=== PATIENT | female | born 1940 | race Caucasian/White ===

== ENCOUNTER 2024-05-30 06:11 | Day surgery (SDC) | payer MEDICARE, OTHER, SELFPAY ==
[2024-05-30 06:13] VITALS: BMI 23.9
[2024-05-30 06:37] VITALS: BMI 23.9
[2024-05-30 06:46] VITALS: BP 184/76
[2024-05-30] MEDS: TYLENOL 1000 MG PO (06:56)
[2024-05-30 08:41] VITALS: BP 110/60
[2024-05-30 08:45] VITALS: BP 114/69
[2024-05-30 09:00] VITALS: BP 154/62
[2024-05-30 09:21] VITALS: BP 143/69
[2024-05-30 09:30] VITALS: BP 146/72
== END 2024-05-30 09:55 | disposition home or self-care (01) ==
LOC: SDS 06:11
PROVIDERS: ATTENDING PHYSICIAN Surgery
DX: K64.8 Other hemorrhoids (principal); R19.8 Other specified symptoms and signs involving the digestive system and abdomen
CPT/HCPCS: 46255; 45330; 88304